=== PATIENT | male | born 1970 | race Caucasian/White ===

== ENCOUNTER 2017-04-17 01:59 | Emergency (ER) | payer MEDICAID ==
[2017-04-17] MEDS ORDERED: Sodium Chloride 0.9% 1,000 ML IV SCH (02:45)
[2017-04-17 03:03] VITALS: BP 145/78
--- NOTE | 2017-04-17 04:26 | EDM.PDOC ---
ED HPI GENERAL MEDICAL PROBLEM - General Chief Complaint: Back Pain or Injury Stated Complaint: MEDICAL [facility]IA [facility] Time Seen by Provider: 04/17/17 04:24 Source of Information: Reports: Patient, EMS History Limitations: Reports: No Limitations - History of Present Illness INITIAL COMMENTS - FREE TEXT/NARRATIVE: 47 years old male patient brought in by ambulance with chief complaint of generalized body aches. Complaining of aching pain in both arms and legs and upper back. He had a low back surgery 2 weeks ago. Denies any fall or injuries. Denies any fever. Denies any urinary symptoms. Denies any sore throat or runny nose. Complaining of upper back pain which is chronic for him. Also left sided chest pain started yesterday evening. Worse with any movement. Denies any shortness breath. No radiation. Patient was given aspirin, Ativan and fentanyl by EMS and by the time he arrived to the ER he was very sleepy. Denies any head trauma or injuries. Treatments [employer]: Reports: Aspirin, IV/IO, Other Medication(s) upper back Pain Score (Numeric/FACES): 10 - Related Data Allergies Allergy/AdvReac Type Severity Reaction Status Date / Time No Known Allergies Allergy Verified 01/31/16 18:00 Home Meds: Home Meds Gabapentin [Neurontin] 900 mg PO TID 01/31/16 [History] ALPRAZolam [Alprazolam] 1 mg PO BID PRN 04/17/17 [History] atoMOXetine HCl [Atomoxetine HCl] 60 mg PO DAILY 04/17/17 [History] lamoTRIgine [Lamotrigine] 100 mg PO DAILY 04/17/17 [History] Past Medical History HEENT History: Reports: Impaired Vision Musculoskeletal History: Reports: Back Pain, Chronic, Fracture Neurological History: Reports: Concussion Psychiatric History: Reports: ADHD, Bipolar Other Hematologic History: hepatitis C Dermatologic History: Reports: Other (See Below) Other Dermatologic History: rash currently on back - Infectious Disease History Infectious Disease History: Reports: Chicken Pox, Hepatitis C, Shingles - Past Surgical History Musculoskeletal Surgical History: Reports: Other (See Below) Social & Family History - Family History Family Medical History: Noncontributory - Tobacco Use Smoking Status *Q: Current Every Day Smoker Years of Tobacco use: 29 Packs/Tins Daily: 0.5 - Caffeine Use Caffeine Use: Reports: None - Recreational Drug Use Recreational Drug Use: Yes Recreational Drug Type: Reports: Marijuana/Hashish Recreational Drug Use Frequency: Weekly Recreational Drug Last Use: 01/18/16 - Living Situation & Occupation Living situation: Reports: with Significant Other ED ROS GENERAL - Review of Systems Review Of Systems: ROS reveals no pertinent complaints other than HPI. ED EXAM, UPPER BACK/NECK PAIN - Physical Exam Exam: See Below Exam Limited By: No Limitations General Appearance: Alert, WD/WN, No Apparent Distress, Other Eye Exam: Bilateral Eye: EOMI, Normal Inspection, PERRL Ears Exam: Normal External Exam, Hearing Grossly Normal Nose Exam: Normal Inspection, Normal Mucousa, No Blood Throat/Mouth Exam: Normal Inspection, Normal Lips, Normal Teeth, Normal Gums, Normal Oropharynx, Normal Voice, No Airway Compromise Head Exam: Atraumatic, Normocephalic Neck Exam: Non-Tender, Full Range of Motion, Normal Alignment, Normal Inspection Cardiovascular/Respiratory: Regular Rate, Rhythm, No M/R/G, Normal Peripheral Pulses, No JVD, Normal Breath Sounds, No Respiratory Distress GI/Abdominal: Normal Bowel Sounds, Soft, Non-Tender, No Organomegaly, No Distention, No Abnormal Bruit, No Mass Back Exam: Normal Inspection, Paraspinal Tenderness. No: Vertebral Tenderness ( Surgical incision clean and intact, dry, healing appropriately. No erythema. No discharge and no swelling) Course - Vital Signs Last Recorded V/S: Last Vital Signs Temp 35.6 C 04/17/17 02:02 Pulse 93 04/17/17 03:00 Resp 20 04/17/17 03:00 BP 145/78 H 04/17/17 03:00 Pulse Ox 100 04/17/17 03:00 - Orders/Labs/Meds Orders: Active Orders 24 hr Category Date Time Status EKG Documentation Completion [RC] ASDIRECTED Care 04/17/17 02:40 Active Abdomen Series w Chest 1V [CR] Urgent Exams 04/17/17 02:37 Taken Head wo Cont [CT] Urgent Exams 04/17/17 02:37 Taken DRUG SCREEN, URINE [URCHEM] Urgent Lab 04/17/17 02:37 Uncollected Sodium Chloride 0.9% [Normal Saline] 1,000 ml Med 04/17/17 02:45 Active IV .BOLUS EKG 12 Lead [EK] Urgent Ther 04/17/17 02:37 Ordered Medication Orders Sodium Chloride (Normal Saline) 1,000 mls @ 999 mls/hr IV .BOLUS HIMANSHU Last Admin: 04/17/17 03:22 Dose: 999 mls/hr Labs: Laboratory Tests 04/17/17 04/17/17 04/17/17 Range/Units 02:37 02:37 02:37 WBC 6.0 (4.5-11.0) K/uL RBC 3.58 L (4.30-5.90) M/uL Hgb 10.7 L D (12.0-15.0) g/dL Hct 33.8 L (40.0-54.0) % MCV 94 (80-98) fL MCH 30 (27-31) pg MCHC 32 (32-36) % Plt Count 429 H (150-400) K/uL Neut % (Auto) 57 (36-66) % Lymph % (Auto) 29 (24-44) % Russell % (Auto) 12 H (2-6) % Eos % (Auto) 2 (2-4) % Baso % (Auto) 0 (0-1) % PT 10.2 (9.5-12.0) sec INR 0.96 (0.80-1.20) APTT 29.4 (27.0-36.0) sec Sodium (140-148) mmol/L Potassium (3.6-5.2) mmol/L Chloride (100-108) mmol/L Carbon Dioxide (21-32) mmol/L Anion Gap (5.0-14.0) mmol/L BUN (7-18) mg/dL Creatinine (0.8-1.3) mg/dL Est Cr Clr Drug Dosing mL/min Estimated GFR (MDRD) (>60) Glucose (74-106) mg/dL Lactic Acid (0.4-2.0) mmol/L Calcium (8.5-10.1) mg/dL Magnesium (1.8-2.4) mg/dL Total Bilirubin (0.2-1.0) mg/dL AST (15-37) U/L ALT (12-78) U/L Alkaline Phosphatase (46-116) U/L Creatine Kinase 75 (39-308) U/L Troponin I (0.000-0.056) ng/mL C-Reactive Protein (0.0-0.3) mg/dL Total Protein (6.4-8.2) g/dL Albumin (3.4-5.0) g/dL Globulin (2.3-3.5) g/dL Albumin/Globulin Ratio (1.2-2.2) Lipase (73-393) U/L Salicylates (2.0-20.0) mg/dL Acetaminophen (10.0-30.0) ug/mL Ethyl Alcohol mg/dL 04/17/17 04/17/17 04/17/17 Range/Units 02:37 02:37 02:37 WBC (4.5-11.0) K/uL RBC (4.30-5.90) M/uL Hgb (12.0-15.0) g/dL Hct (40.0-54.0) % MCV (80-98) fL MCH (27-31) pg MCHC (32-36) % Plt Count (150-400) K/uL Neut % (Auto) (36-66) % Lymph % (Auto) (24-44) % Russell % (Auto) (2-6) % Eos % (Auto) (2-4) % Baso % (Auto) (0-1) % PT (9.5-12.0) sec INR (0.80-1.20) APTT (27.0-36.0) sec Sodium 140 (140-148) mmol/L Potassium 3.9 (3.6-5.2) mmol/L Chloride 106 (100-108) mmol/L Carbon Dioxide 29 (21-32) mmol/L Anion Gap 5.4 (5.0-14.0) mmol/L BUN 8 D (7-18) mg/dL Creatinine 0.8 (0.8-1.3) mg/dL Est Cr Clr Drug Dosing 105.58 mL/min Estimated GFR (MDRD) > 60 (>60) Glucose 119 H (74-106) mg/dL Lactic Acid 1.7 (0.4-2.0) mmol/L Calcium 8.3 L (8.5-10.1) mg/dL Magnesium 2.0 (1.8-2.4) mg/dL Total Bilirubin 0.2 (0.2-1.0) mg/dL AST 23 (15-37) U/L ALT 45 (12-78) U/L Alkaline Phosphatase 107 (46-116) U/L Creatine Kinase (39-308) U/L Troponin I < 0.017 (0.000-0.056) ng/mL C-Reactive Protein 0.80 H (0.0-0.3) mg/dL Total Protein 6.4 (6.4-8.2) g/dL Albumin 2.9 L (3.4-5.0) g/dL Globulin 3.5 (2.3-3.5) g/dL Albumin/Globulin Ratio 0.8 L (1.2-2.2) Lipase 294 (73-393) U/L Salicylates 2.4 (2.0-20.0) mg/dL Acetaminophen 0.0 L (10.0-30.0) ug/mL Ethyl Alcohol mg/dL 04/17/17 Range/Units 02:40 WBC (4.5-11.0) K/uL RBC (4.30-5.90) M/uL Hgb (12.0-15.0) g/dL Hct (40.0-54.0) % MCV (80-98) fL MCH (27-31) pg MCHC (32-36) % Plt Count (150-400) K/uL Neut % (Auto) (36-66) % Lymph % (Auto) (24-44) % Russell % (Auto) (2-6) % Eos % (Auto) (2-4) % Baso % (Auto) (0-1) % PT (9.5-12.0) sec INR (0.80-1.20) APTT (27.0-36.0) sec Sodium (140-148) mmol/L Potassium (3.6-5.2) mmol/L Chloride (100-108) mmol/L Carbon Dioxide (21-32) mmol/L Anion Gap (5.0-14.0) mmol/L BUN (7-18) mg/dL Creatinine (0.8-1.3) mg/dL Est Cr Clr Drug Dosing mL/min Estimated GFR (MDRD) (>60) Glucose (74-106) mg/dL Lactic Acid (0.4-2.0) mmol/L Calcium (8.5-10.1) mg/dL Magnesium (1.8-2.4) mg/dL Total Bilirubin (0.2-1.0) mg/dL AST (15-37) U/L ALT (12-78) U/L Alkaline Phosphatase (46-116) U/L Creatine Kinase (39-308) U/L Troponin I (0.000-0.056) ng/mL C-Reactive Protein (0.0-0.3) mg/dL Total Protein (6.4-8.2) g/dL Albumin (3.4-5.0) g/dL Globulin (2.3-3.5) g/dL Albumin/Globulin Ratio (1.2-2.2) Lipase (73-393) U/L Salicylates (2.0-20.0) mg/dL Acetaminophen (10.0-30.0) ug/mL Ethyl Alcohol < 3 mg/dL Meds: Medications Generic Name Dose Route Start Last Admin Trade Name Freq PRN Reason Stop Dose Admin Sodium Chloride 1,000 mls @ 999 mls/hr 04/17/17 02:45 04/17/17 03:22 Normal Saline IV 999 mls/hr .BOLUS HIMANSHU Administration - Re-Assessments/Exams Free Text/Narrative Re-Assessment/Exam: 04/17/17 05:13 Patient was seen and examined shortly after arrival. He was very sleepy. CT head unremarkable. EKG shows no sign of acute ischemia or arrhythmia. Lab and imaging is been reviewed. No significant abnormalities. Patient was given 1 L normal saline bolus. He slept several hour then woke up feeling better. Chest pain resolved. He is up and walking and talking. Still complaining of upper back pain which is chronic for him. Requesting narcotic. Patient was given a prescription for oxycodone 5 mg. Was given 8 tablets to be used when necessary until he sees his primary doctor on Wednesday. Advised to rest, stay well-hydrated , come back if symptom worsen. Do not drive or operate machines when taken oxycodone. Patient agrees with the plan. Stable for discharge 04/17/17 05:28 Departure - Departure Time of Disposition: 05:45 Disposition: Home, Self-Care 01 Condition: Good Clinical Impression: Back pain - Discharge Information Instructions: Muscle Strain, [id number], Back Pain, Adult, [id number] Referrals: PCP,None [Primary Care Provider] - Forms: ED Department Discharge - My Orders Last 24 Hours: My Active Orders 04/17/17 02:37 Abdomen Series w Chest 1V [CR] Urgent Head wo Cont [CT] Urgent DRUG SCREEN, URINE [URCHEM] Urgent EKG 12 Lead [EK] Urgent 04/17/17 02:40 EKG Documentation Completion [RC] ASDIRECTED 04/17/17 02:45 Sodium Chloride 0.9% [Normal Saline] 1,000 ml IV .BOLUS - Assessment/Plan Last 24 Hours: My Active Orders 04/17/17 02:37 Abdomen Series w Chest 1V [CR] Urgent Head wo Cont [CT] Urgent DRUG SCREEN, URINE [URCHEM] Urgent EKG 12 Lead [EK] Urgent 04/17/17 02:40 EKG Documentation Completion [RC] ASDIRECTED 04/17/17 02:45 Sodium Chloride 0.9% [Normal Saline] 1,000 ml IV .BOLUS Plan: Rest, stay well-hydrated, come back if symptom worsen Tylenol or ibuprofen for discomfort. Do not drive or operate machines when taken narcotic Follow-up with your primary doctor on Wednesday
--- NOTE | 2017-04-19 09:25 | CR ---
Abdomen Series w Chest 1V INDICATION: chest pain, and abd pain FINDINGS: Comparison 01/31/2016. Heart size normal. Lungs are clear. Prominent nipple shadows. Large a mount of stool throughout the colon. Postoperative changes lumbar spine.
== END 2017-04-17 06:48 | disposition home or self-care (01) ==
LOC: JP.ED 01:59
DX: M54.6 Pain in thoracic spine (principal); F17.210 Nicotine dependence, cigarettes, uncomplicated; F31.9 Bipolar disorder, unspecified; Z79.899 Other long term (current) drug therapy
CPT/HCPCS: 36415; 70450; 74022; 80053; 82550; 83605; 83690; 83735; 84484; 85025; 85610; 85730; 86140; 93005; 96360; 99285; G0480; J7040

== ENCOUNTER 2017-04-21 12:25 | Emergency (ER) | payer MEDICAID ==
[2017-04-21 12:35] VITALS: BP 146/81
--- NOTE | 2017-04-21 13:47 | EDM.PDOC ---
ED HPI GENERAL MEDICAL PROBLEM - General Chief Complaint: General Stated Complaint: MEDICAL [facility] Time Seen by Provider: 04/21/17 13:00 Source of Information: Reports: Patient, EMS History Limitations: Reports: Uncooperative - History of Present Illness INITIAL COMMENTS - FREE TEXT/NARRATIVE: 47-year-old male with chronic psychiatric issues who underwent back surgery 3 weeks ago is having some difficulties coping at home, his girlfriend recently left and he didn't pay some bills so he is without electricity. He just didn't feel well today so called the ambulance. He is perfectly stable however, and when visiting with him he complains more about his social situation than any physical problems. He wants to be put in the hospital because he doesn't have running water. He had an appointment with his primary care on Wednesday, and an appointment with his psychiatrist on Wednesday and an appointment last week but he can't remember the details. There were some medication adjustments but he admits he is not taking his medications appropriately. He is not suicidal or homicidal. Quality: Reports: Ache (Some postoperative back pain. Appears to be doing well) Associated Symptoms: Reports: No Other Symptoms. 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 - Related Data Allergies Allergy/AdvReac Type Severity Reaction Status Date / Time cat dander Allergy Cough Verified 04/21/17 13:07 wool Allergy Blisters Uncoded 04/21/17 13:07 Home Meds: Home Meds Gabapentin [Neurontin] 900 mg PO TID 01/31/16 [History] ALPRAZolam [Alprazolam] 1 mg PO BID PRN 04/17/17 [History] atoMOXetine HCl [Atomoxetine HCl] 60 mg PO DAILY 04/17/17 [History] lamoTRIgine [Lamotrigine] 100 mg PO DAILY 04/17/17 [History] Past Medical History HEENT History: Reports: Impaired Vision Musculoskeletal History: Reports: Back Pain, Chronic, Fracture Neurological History: Reports: Concussion Psychiatric History: Reports: ADHD, Bipolar Other Hematologic History: hepatitis C Dermatologic History: Reports: Other (See Below) Other Dermatologic History: rash currently on back - Infectious Disease History Infectious Disease History: Reports: Chicken Pox - Past Surgical History Musculoskeletal Surgical History: Reports: Other (See Below) Social & Family History - Family History Family Medical History: Noncontributory - Tobacco Use Smoking Status *Q: Current Every Day Smoker Years of Tobacco use: 36 Packs/Tins Daily: 1 - Caffeine Use Caffeine Use: Reports: Coffee - Alcohol Use Date of Last Drink: 04/20/17 - Recreational Drug Use Recreational Drug Use: Yes Recreational Drug Type: Reports: Marijuana/Hashish Recreational Drug Use Frequency: Weekly Recreational Drug Last Use: 01/18/16 - Living Situation & Occupation Living situation: Reports: with Significant Other ED ROS GENERAL - Review of Systems Review Of Systems: See Below Constitutional: Denies: Fever, Chills Respiratory: Denies: Shortness of Breath Cardiovascular: Denies: Chest Pain GI/Abdominal: Denies: Abdominal Pain, Nausea, Vomiting Musculoskeletal: Reports: Back Pain Skin: Reports: No Symptoms Neurological: Denies: Headache ED EXAM, GENERAL - Physical Exam Exam: See Below Exam Limited By: No Limitations General Appearance: Alert, No Apparent Distress Throat/Mouth: Other (Advanced dental decay is present) Head: Atraumatic Respiratory/Chest: No Respiratory Distress, Lungs Clear Cardiovascular: Regular Rate, Rhythm GI/Abdominal: Non-Tender Neurological: Alert, Oriented Psychiatric: Normal Affect, Normal Mood Skin Exam: Warm, Dry Course - Vital Signs Last Recorded V/S: Last Vital Signs Temp 98.6 F 04/21/17 13:10 Pulse 106 H 04/21/17 13:10 Resp 16 04/21/17 13:10 BP 146/81 H 04/21/17 13:10 Pulse Ox 100 04/21/17 13:10 - Re-Assessments/Exams Free Text/Narrative Re-Assessment/Exam: 04/21/17 14:46 Reviewed his recent records, he left AMA from the postsurgical floor at [place] when he had his back surgery and left AMA twice at the [facility] in the last few weeks. His problems appear to be more social than they are physical. community planner had a long conversation with the patient and are attempting to arrange transportation back to his home. Departure - Departure Time of Disposition: 15:33 Disposition: Home, Self-Care 01 Condition: Good Clinical Impression: Postoperative back pain, Chronic depression - Discharge Information Instructions: Back Pain, Adult Referrals: PCP,None [Primary Care Provider] - Forms: ED Department Discharge Care Plan Goals: It's very important that you take your medications as directed. Recheck with your regular doctors as needed.
== END 2017-04-21 15:33 | disposition home or self-care (01) ==
LOC: JP.ED 12:25
DX: G89.18 Other acute postprocedural pain (principal); M54.9 Dorsalgia, unspecified; F32.9 Major depressive disorder, single episode, unspecified; Z91.048 Other nonmedicinal substance allergy status; F17.210 Nicotine dependence, cigarettes, uncomplicated
CPT/HCPCS: 99284

== ENCOUNTER 2023-05-19 09:19 | Emergency (ER) | payer MEDICAID ==
[2023-05-19] MEDS ORDERED: Sodium Chloride 0.9% 10 ML Syringe FLUSH PRN (09:39)
[2023-05-19 09:55] LABS: BASOPHILS PERCENT AUTO 0.1 % (0.1-1.3); EOSINOPHILS ABSOLUTE AUTO 0.03 K/uL (0.00-0.40); EOSINOPHILS PERCENT AUTO 0.4 % (0.0-5.4); HEMATOCRIT 41.4 % (38.4-49.7); HEMOGLOBIN 13.9 g/dL (12.9-16.9); IMMATURE GRAN PERCENT AUTO 0.2 % (0.0-0.7); LYMPHOCYTES ABSOLUTE AUTO 2.58 K/uL (0.8-3.3); LYMPHOCYTES PERCENT AUTO 31.4 % (11.4-47.7); MEAN CORPUSCULAR HGB CONC 33.6 g/dL (31.6-35.5); MEAN CORPUSCULAR VOLUME 89.2 fL (81.4-99.0); MONOCYTES ABSOLUTE AUTO 0.88 K/uL (0.20-0.90); MONOCYTES PERCENT AUTO 10.7 % (3.3-12.6); NEUTROPHILS ABSOLUTE AUTO 4.69 K/uL (1.0-7.6); NEUTROPHILS PERCENT AUTO 57.2 % (40.0-78.1); PLATELET COUNT,PLT 155 K/uL (130-375); RED BLOOD CELL COUNT 4.64 M/uL (4.14-5.76); WHITE BLOOD CELL COUNT,WBC 8.2 K/uL (3.2-11.0)
[2023-05-19 09:56] LABS: BASOPHILS ABSOLUTE AUTO 0.01 K/uL (0.00-0.10); IMMATURE GRAN ABSOLUTE AUTO 0.02 K/uL (0.00-0.23)
[2023-05-19 10:19] LABS: LACTIC ACID 0.8 mmol/L (0.4-2.0)
[2023-05-19 10:25] LABS: A/G RATIO 0.9 (1.2-2.2); ALANINE AMINOTRANSFERASE,ALT 20 U/L (12-78); ALBUMIN 3.2 g/dL (3.4-5.0); ALKALINE PHOSPHATASE 80 U/L (46-116); ANION GAP 12.9 mmol/L (5.0-14.0); ASPARTATE AMNIOTRANSFERASE,AST 17 U/L (15-37); BILIRUBIN TOTAL 0.4 mg/dL (0.2-1.0); BLOOD UREA NITROGEN,BUN 5 mg/dL (7-18); CALCIUM 8.5 mg/dL (8.5-10.1); CARBON DIOXIDE,CO2 27 mmol/L (21-32); CHLORIDE,CL 102 mmol/L (100-108); CREATININE 0.7 mg/dL (0.8-1.3); EST CRCL DRUG DOSING (CG) 112.79 mL/min; ESTIMATED GFR 110 mL/min (>60); GLUCOSE RANDOM 76 mg/dL (74-106); POTASSIUM,K 3.9 mmol/L (3.6-5.2); PROTEIN TOTAL,TP 6.9 g/dL (6.4-8.2); SODIUM,NA 138 mmol/L (140-148)
[2023-05-19 10:33] VITALS: BP 139/85; PULSE 68
[2023-05-19 10:39] LABS: CORONAVIRUS COVID-19 NAA NEGATIVE (NEGATIVE); INFLUENZA A NAA NEGATIVE (NEGATIVE); INFLUENZA B NAA NEGATIVE (NEGATIVE); RESPIRATORY SYNCYTIAL VIR NAA NEGATIVE (NEGATIVE)
[2023-05-19 12:17] LABS: APPEARANCE,URINE CLEAR (CLEAR); BILIRUBIN,URINE NEGATIVE (NEGATIVE); COLOR,URINE YELLOW (YELLOW); GLUCOSE,URINE NEGATIVE (NEGATIVE); KETONES,URINE NEGATIVE (NEGATIVE); LEUKOCYTE ESTERASE,URINE NEGATIVE (NEGATIVE); NITRITE,URINE NEGATIVE (NEGATIVE); OCCULT BLOOD,URINE NEGATIVE (NEGATIVE); PROTEIN,URINE TRACE mg/dL (NEGATIVE)
[2023-05-19 12:23] LABS: AMORPHOUS SEDIMENT,URINE RARE; BACTERIA,URINE RARE; EPITHELIAL CELLS,URINE FEW; MUCUS,URINE RARE; RBC,URINE NOT SEEN (0-5); WBC,URINE NOT SEEN (0-5)
== END 2023-05-19 13:22 | disposition home or self-care (01) ==
LOC: JP.ED 09:19
DX: B19.20 Unspecified viral hepatitis C without hepatic coma (principal); J11.1 Influenza due to unidentified influenza virus with other respiratory manifestations; R91.1 Solitary pulmonary nodule; Z91.048 Other nonmedicinal substance allergy status; Z20.822 Contact with and (suspected) exposure to COVID-19
CPT/HCPCS: 0241U; 36415; 71045; 71045-26; 71250; 71250-26; 80053; 81001; 83605; 84145; 84484; 85025; 99284